=== PATIENT | female | born 1950 | race Caucasian/White ===

== ENCOUNTER → 2019-05-26 | Outpatient (CLI) | payer MEDICARE ==
[2019-05-26 07:28] LABS: Appearance,Urine Clear (Clear); Bacteria,Urine Rare /hpf; Bilirubin,Urine Negative (Negative); Blood,Urine Negative (Negative); Color,Urine Light Yellow; Glucose,Urine (UA) Negative (Negative); Ketones,Urine Negative (Negative); Leukocyte Esterase,Urine Moderate (Negative); Mucus,Urine Rare /hpf; Nitrite,Urine Negative (Negative); Protein,Urine Negative (Negative); Specific Gravity,Urine 1.012 (1.001-1.035); Squamous Epithelial Cell,Urine 1 /hpf (0-4); Urobilinogen,Urine <2.0 mg/dL (<2.0); WBC,Urine 7 /hpf (0-5)
[2019-05-26 10:26] LABS: African American GFR (CKD) 32.3 (60.0-200.0); Albumin 4.6 g/dL (3.80-4.90); Albumin/Globulin Ratio 2.19 (1.60-3.17); Anion Gap 11.9 mmol/L (4.00-12.00); BUN/Creat Ratio 22.78 Ratio (12.00-20.00); Calcium 9.9 mg/dL (8.7-10.3); Carbon Dioxide 23.1 mmol/L (21.6-31.8); Globulin 2.1 g/dL (1.6-3.3); Potassium 4.2 mmol/L (3.5-5.5); Total Bilirubin 0.4 mg/dL (0.2-1.2); Total Protein 6.7 g/dL (6.2-8.2)
[2019-05-26 10:34] LABS: T4, Free (Free Thyroxine) 1.3 ng/dL (0.80-1.80)
[2019-05-26 12:56] LABS: Hemoglobin A1C 5.9 % (4.0-6.0)
== END | disposition home or self-care (01) ==
LOC: LABWHC1 06:31
DX: R73.9 Hyperglycemia, unspecified (principal); E88.81 Metabolic syndrome and other insulin resistance; E03.9 Hypothyroidism, unspecified; I10 Essential (primary) hypertension; N19 Unspecified kidney failure
CPT/HCPCS: 36415; 80053; 81001; 83036; 84439; 84443

== ENCOUNTER 2020-06-14 19:12 | Emergency (ER) | payer MEDICARE ==
[2020-06-14] MEDS ORDERED: CEPHALEXIN 500MG STARTER PACK 4 CAP BTL PO STA (20:07)
--- NOTE | 2020-06-14 20:11 | ED ---
Skin/Abscess/FB HPI - General Chief complaint: Skin/Abscess/Foreign Body Stated complaint: Rash on leg Time Seen by Provider: 06/14/20 19:52 Source: patient Mode of arrival: ambulatory Limitations: no limitations - History of Present Illness Initial comments: Patient is 70-year-old male presenting to the emergency department with a chief complaint of rash on the left leg. Patient states today she noticed a small abrasion rash on the anterior aspect of left lower leg. Patient reports she is also getting treated for this, so carcinoma the site. Patient reports these 2 do not appear to be related. States she probably hit her leg on a coffee table few days ago but did not notice it. Patient reports this morning she noticed some redness distally to the abrasion. States her tetanus is up-to-date. Denies anynight sweats fevers or chills - Related Data Allergies Allergy/AdvReac Type Severity Reaction Status Date / Time No Known Allergies Allergy Verified 06/14/20 19:59 Review of Systems ROS Statement: Those systems with pertinent positive or pertinent negative responses have been documented in the HPI. ROS Other: All systems not noted in ROS Statement are negative. Past Medical History Past Medical History: Thyroid Disorder Additional Past Medical History / Comment(s): skin cx- squamous cell (left leg) History of Any Multi-Drug Resistant Organisms: None Reported Additional Past Surgical History / Comment(s): foot surgery. cx removed from left leg. Past Psychological History: No Psychological Hx Reported Smoking Status: Never smoker Past Alcohol Use History: Occasional Past Drug Use History: None Reported General Exam Limitations: no limitations General appearance: alert, in no apparent distress Head exam: Present: atraumatic, normocephalic, normal inspection Eye exam: Present: normal appearance, PERRL, EOMI Pupils: Present: normal accommodation ENT exam: Present: normal exam, normal oropharynx, mucous membranes moist, TM's normal bilaterally, normal external ear exam Neck exam: Present: normal inspection, full ROM. Absent: tenderness Respiratory exam: Present: normal lung sounds bilaterally. Absent: respiratory distress, wheezes Cardiovascular Exam: Present: regular rate, normal rhythm, normal heart sounds Extremities exam: Present: full ROM, tenderness (Mild tenderness at the site of inflammation), normal capillary refill, pedal edema (+1 pitting edema bilaterally at baseline.), other (+2 dorsalis pedis and posterior tibials bilateral.). Absent: normal inspection (Abrasion on the left lower leg with a region of erythema measuring approximately 3 cm x 7 cm.), joint swelling, calf tenderness (Negative Homans bilaterally) Back exam: Present: normal inspection, full ROM. Absent: tenderness Neurological exam: Present: alert, oriented X3 Psychiatric exam: Present: normal affect, normal mood Skin exam: Present: warm, dry, intact, normal color Course Vital Signs 06/14/20 06/14/20 19:40 20:22 Temperature 98.7 F 97.5 F L Pulse Rate 87 86 Respiratory 16 19 Rate Blood Pressure 185/89 155/76 O2 Sat by Pulse 99 96 Oximetry Medical Decision Making - Medical Decision Making Patient is 70-year-old female presenting to emergency prompt chief complaint of rash. Exam patient appears to have small abrasion with surrounding erythema. The suspect cellulitis. Patient will be started on Keflex and will be discharged with a seven-day course of Keflex. Her tetanus is up-to-date. She is going on a long trip tomorrow. Patient advised to wear compression stockings and to stop frequently for walks and noted to minimize the potential for DVT. Strict return parameters were thoroughly discussed patient is a nursing agreeable. Case discussed with physician. Disposition Clinical Impression: Cellulitis of left leg Disposition: HOME SELF-CARE Condition: Stable Instructions (If sedation given, give patient instructions): Cellulitis (DC) Additional Instructions: Take prescribed medication as directed. Follow with primary care physician. Return to emergency department if symptoms worsen. Is patient prescribed a controlled substance at d/c from ED?: No Referrals: Nonstaff,Physician [Primary Care Provider] - 1-2 days Time of Disposition: 20:11
[2020-06-14 20:31] VITALS: BP 155/76; PULSE 86; RESP 19; TEMP 97.5
== END 2020-06-14 20:22 | disposition home or self-care (01) ==
LOC: EC 19:12
DX: L03.116 Cellulitis of left lower limb (principal); S80.812A Abrasion, left lower leg, initial encounter; X58.XXXA Exposure to other specified factors, initial encounter
CPT/HCPCS: 99282